=== PATIENT | female | born 1955 | race Caucasian/White ===

== ENCOUNTER 2017-09-07 15:59 | Emergency (ER) | payer OTHER ==
--- NOTE | 2017-09-07 16:35 | CR ---
Clinical history: 61-year-old female injured right knee (ground-level fall). Interpretation: Chronic arthritic changes. No sign of acute fracture or dislocation right knee (flabella posteriorly).
--- NOTE | 2017-09-07 16:54 | EDM.PDOC ---
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 The patient reports increased discomfort was movement and weight bearing activities since the incident. Onset: Today Duration: Minutes: Location: Reports: Lower Extremity, Right Quality: Reports: Ache, Dull Severity: Moderate Improves with: Reports: None Worsens with: Reports: None Context: Reports: Trauma Right Lower Leg Pain Score (Numeric/FACES): 3 - Related Data Allergies Allergy/AdvReac Type Severity Reaction Status Date / Time No Known Allergies Allergy Verified 09/07/17 16:05 Home Meds: Home Meds . [No Known Home Meds] 05/20/16 [History] Past Medical History - Past Health History Medical/Surgical History: Denies Medical/Surgical History Musculoskeletal History: Reports: Osteoarthritis Dermatologic History: Reports: Eczema - Past Surgical History Female Surgical History: Reports: Section Musculoskeletal Surgical History: Reports: Other (See Below) Other Musculoskeletal Surgeries/Procedures:: left arm Social & Family History - Family History Family Medical History: Noncontributory - Tobacco Use Smoking Status *Q: Never Smoker Second Hand Smoke Exposure: No - Caffeine Use Caffeine Use: Reports: None - Recreational Drug Use Recreational Drug Use: No Review of Systems - Review of Systems Review Of Systems: ROS reveals no pertinent complaints other than HPI. ED EXAM, GENERAL - Physical Exam Exam: See Below Exam Limited By: No Limitations General Appearance: Alert, WD/WN, Mild Distress Eye Exam: Bilateral Eye: EOMI, Normal Inspection Ears: Normal External Exam Nose: Normal Inspection, Normal Mucosa, No Blood Throat/Mouth: Normal Inspection, Normal Lips, Normal Teeth Head: Atraumatic, Normocephalic Neck: Normal Inspection, Supple, Non-Tender, Full Range of Motion Respiratory/Chest: No Respiratory Distress, Lungs Clear, Normal Breath Sounds, No Accessory Muscle Use, Chest Non-Tender Cardiovascular: Normal Peripheral Pulses, Regular Rate, Rhythm, No Edema, No Gallop, No JVD, No Murmur, No Rub (Female) Exam: Deferred Rectal (Female) Exam: Deferred Back Exam: Normal Inspection, Full Range of Motion, NT Extremities: Leg Pain (right knee tenderness to palpation with contusion to the medial aspect), Limited Range of Motion Neurological: Alert, Oriented, CN II-XII Intact, Normal Cognition, Normal Gait, Normal Reflexes, No Motor/Sensory Deficits Psychiatric: Normal Affect, Normal Mood Skin Exam: Warm, Dry, Intact, Normal Color, No Rash Lymphatic: No Adenopathy Course - Vital Signs Last Recorded V/S: Last Vital Signs Temp 36.7 C 09/07/17 16:05 Pulse 75 09/07/17 16:05 Resp 16 09/07/17 16:05 BP 114/68 09/07/17 16:05 Pulse Ox 96 09/07/17 16:05 Departure - Departure Time of Disposition: 18:54 Disposition: Home, Self-Care 01 Condition: Fair Clinical Impression: Contusion of right knee Qualifiers: Encounter type: initial encounter Qualified Code(s): S80.01XA - Contusion of right knee, initial encounter - Discharge Information Instructions: Contusion, [id number] Forms: ED Department Discharge Care Plan Goals: The patient was advised of the examination and x-ray results during the visit. The patient was given an MAYANK wrap for support and encouraged to rest, ice and elevate the right knee over the next 24 hours. If the patient has any additional symptoms or concerns, the patient should follow-up with her primary care facility or return to the emergency department.
== END 2017-09-07 17:08 | disposition home or self-care (01) ==
LOC: DL.ED 15:59
DX: S80.01XA Contusion of right knee, initial encounter (principal); W23.1XXA Caught, crushed, jammed, or pinched between stationary objects, initial encounter
CPT/HCPCS: 73562-RT; 99283

== ENCOUNTER 2019-06-08 08:04 | Day surgery (SDC) | payer OTHER ==
[~2019-06-08 08:04] MED LIST: Dextrose 5%-0.45% NaCl 1,000 ML IV SCH; Midazolam 1 MG/ML 2 ML SDV ONE; fentaNYL 100 MCG/2 ML SDV ONE
[2019-06-08] MEDS ORDERED: fentaNYL 100 MCG/2 ML SDV IV ONE ×3 (08:05→08:57)
[2019-06-08] MEDS ORDERED: Midazolam 1 MG/ML 2 ML SDV IV ONE ×5 (08:05→08:55)
--- NOTE | 2019-06-08 12:05 | OR ---
DATE: 06/08/2019 PREOPERATIVE DIAGNOSIS: Screening colonoscopy. POSTOPERATIVE DIAGNOSIS: Screening colonoscopy. PROCEDURE: Total colonoscopy. ANESTHESIA: Conscious sedation with IV Versed and fentanyl. SPECIMEN: None. OPERATIVE FINDINGS: Normal colonoscopy. RECOMMENDATION: Followup screening colonoscopy for polyps in 10 years, sooner for symptoms. INDICATION FOR PROCEDURE: This 63-year-old female presents for screening colonoscopy. PROCEDURE IN DETAIL: After adequate preparation, a colonoscope was inserted into the rectum. This was easily passed all the way to the cecum. Confirmation of the cecum was made by visualization of the ileocecal valve and palpation in the right lower quadrant. I could also see a light shining through the right lower quadrant. A photograph of the bowel was taken. The bowel prep was very good. On withdrawal of the scope, no abnormalities were noted. Anal and rectal examinations are also normal. Air was suctioned from the colon, and the scope removed. [facility] /[id number]
== END 2019-06-08 11:30 | disposition home or self-care (01) ==
LOC: DL.ENDO 08:04
PROVIDERS: ATTEND Surgery
DX: Z12.11 Encounter for screening for malignant neoplasm of colon (principal)
CPT/HCPCS: 45378; J2250; J3010; J7042; G0121

== ENCOUNTER 2022-04-02 09:13 | Emergency (ER) | payer OTHER ==
[2022-04-02 10:43] LABS: ANION GAP 11.9 mEq/L (7-13); CHLORIDE,CL 101 mmol/L (98-107); SODIUM,NA 138 mmol/L (136-145)
[2022-04-02 10:44] LABS: ESTIMATED GFR 89 mL/min (>=60)
[2022-04-02] MEDS ORDERED: Morphine 4 MG/ML Syringe IVPUSH ONE (10:58)
[2022-04-02] MEDS ORDERED: Ondansetron 4 MG/2 ML SDV IV ONE (10:58)
== END 2022-04-02 11:29 ==
LOC: DL.ED 09:13
DX: I60.9 Nontraumatic subarachnoid hemorrhage, unspecified (principal); Z88.1 Allergy status to other antibiotic agents; Z79.899 Other long term (current) drug therapy; Z90.710 Acquired absence of both cervix and uterus
CPT/HCPCS: 36415; 70450; 72125; 80053; 85025; 86140; 96374; 96375; 99285; J2270; J2405